=== PATIENT | female | born 1990 | race African-American/Black ===

== ENCOUNTER 2018-10-21 05:40 | Inpatient (IN) | payer MEDICARE, MEDICAID ==
--- NOTE | 2018-10-19 17:36 | HP ---
General Information - Reason for Visit 28 y/o with Sickle cell trait and a at 39+ weeks EGA, history of prior Section, desires a repeat delivery despite counseling and prior successful . 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 - Antepartal Records Antepartal Records: Reviewed, Complicated by: - Prior , Sickle cell trait, Anemia, Obesity. Review of Systems Constitutional: Comfortable CV Complaint: No Respiratory: Shortness of Breath: No Gastrointestinal: No Nausea/Vomiting, Normal Bowel Movement Genitourinary: No Dysuria, No Bleeding, No Leaking Fluid Musculoskeletal: No Complaint, No Epigastric Pain Neurological: No Headache, No Visual Changes Movement: Normal Exam Allergies/Adverse Reactions: Allergies No Known Allergies Allergy (Verified 10/19/18 15:19) Temp 98.8 BP 130/80 P 84 RR 20 - Measurements Height: 5 ft 6 in Weight: 200 lb Weight in lbs: 200.551382 Body Mass Index (BMI): 32.3 Pre- Weight: 218 lb 9.723 oz Weight Gained This : -18.607 lbs and -0.011 ozs - Exam Breast: Breast Exam Deferred CVA: No CVA Tenderness Extremities: No Edema Heart: Normal Rhythm/Heart Sounds HEENT: No Significant Findings Lungs: Clear Bilaterally Rectal: Rectal Exam Deferred Reflexes: DTR 2+ Thyroid: No Thyromegaly - Abdominal Exam Abdomen Exam: Non-Tender, Fundal Height Consistent with Dates - Ultrasound/Biophysical Profile Ultrasound Status: Not Done Targeted Exam Findings See L&D Outpatient Visit Provider Note for Findings: N/A Cervical Exam: 2cm Effacement: 60% Station: -2 Presenting Part: Vertex Membrane Status: Intact Bleeding/Discharge: None EFM Findings - External Monitor Findings Baseline Heart Rate: 150 Contractions: None Assessment/Plan - Assessment Patient is a 28 y/o at 39 6/7 weeks EGA, prior section, prior who desires a repeat section. The patient has been counseled regarding an attempt at given that she has done so in the past and is a good candidate for a trial of labor. She is aware of the risk/benefits, common side effects/complications, morbidity/mortality associated with a repeat section and . After our discussion and answering all of her questions to her satisfaction, she expressed understanding of her choices and opted for a repeat section. - Obstetrical Risk Factors Obstetrical Risk Factors: Obesity - Previous , Anemia. - Plan Plan: IV Hydration, Expedite C/S Delivery, Antibiotic Prophylaxis - Date/Time of Admission Date of Admission: 10/21/18 Time of Admission: 07:00
[2018-10-21] MEDS ORDERED: Lidocaine 1%* 5 ML VIAL ONE (05:51)
[2018-10-21] MEDS ORDERED: Sodium Citrate/Citric Acid* 15 ML UDC PO ONE (07:00)
[2018-10-21] MEDS ORDERED: ceFOXitin 2 GM IVPREMIX* 2 GM/50 ML BAG IVPB ONE (07:00)
[2018-10-21] MEDS ORDERED: Bupivacaine-MPF SPINAL* 7.5 MG/ML - 2ML AMP ONE (07:38)
[2018-10-21] MEDS ORDERED: Lidocaine 2% PF * 5 ML VIAL ONE (07:38)
[2018-10-21] MEDS ORDERED: Morphine PF AMP (0.5MG/ML)* 5 MG/10 ML AMP ONE (07:38)
[2018-10-21] MEDS ORDERED: Sodium Chloride 0.9%* 10 ML ONE (07:54)
[2018-10-21] MEDS ORDERED: EPHEDrine (Pressors)* 50 MG/ML VIAL ONE (08:23)
[2018-10-21] MEDS ORDERED: Phenylephrine INJ* 10 MG/ML 1 ML VIAL (10 MG) ONE (08:23)
[2018-10-21] MEDS ORDERED: OXYTOCIN* 10 UNITS/ML 1 ML VIAL ONE ×2 (08:32→09:00)
[2018-10-21] MEDS ORDERED: Naloxone* 0.4 MG/ML 1 ML VIAL IV PRN ×2 (08:43→08:53)
[2018-10-21] MEDS ORDERED: fentaNYL* 50 MCG/ML 2 ML VIAL (100 MCG VIAL) IV PRN (08:48)
[2018-10-21] MEDS ORDERED: Ondansetron INJ* 2 MG/ML VIAL IV PRN ×2 (08:48→08:53)
[2018-10-21] MEDS ORDERED: oxyCODONE/Acetamin 5/325 MG* TAB PO PRN (08:53)
[2018-10-21] MEDS ORDERED: DiMENhydriNATE IV* 50 MG/ML VIAL IV PUSH PRN (08:53)
[2018-10-21] MEDS ORDERED: Scopolamine 1.5 mg* PATCH TRANSDERM PRN (08:53)
[2018-10-21] MEDS ORDERED: Ketorolac INJ* 30 MG/ML 1 ML VIAL ONE (08:56)
[2018-10-21] MEDS ORDERED: Methylergonovine INJ* 0.2 MG/ML 1ML AMP IM ONE (09:22)
[2018-10-21] MEDS ORDERED: Glycerin ADULT SUPP PR PRN (09:22)
[2018-10-21] MEDS ORDERED: Dibucaine 1% 28.35 GM TUBE PR PRN (09:22)
[2018-10-21] MEDS ORDERED: Zolpidem TAB* 5 MG PO PRN (09:22)
[2018-10-21] MEDS ORDERED: Witch Hazel PAD* JAR TOPICAL PRN (09:22)
[2018-10-21] MEDS ORDERED: Acetaminophen TAB* 325 MG PO PRN (09:22)
[2018-10-21] MEDS: Simethicone TAB* 80 MG TAB.CHEW PO SCH ×3 (15:38→21:58)
[2018-10-21] MEDS: Docusate CAP* 100 MG PO SCH ×2 (15:39→21:58)
[2018-10-21] MEDS ORDERED: PROCHLORPERAZINE INJ 5 MG/ML 2 ML VIAL IV ONE (16:00)
[2018-10-21] MEDS: Ketorolac INJ* 30 MG/ML 1 ML VIAL IV PRN ×2 (16:01→22:02)
[2018-10-22] MEDS ORDERED: oxyCODONE/Acetamin 5/325 MG* TAB PO PRN (00:06)
[2018-10-22] MEDS: Ketorolac INJ* 30 MG/ML 1 ML VIAL IV PRN (04:06)
[2018-10-22 07:32] LABS: ABS Basophils 0.1 10^3/ul (0-0.2); ABS Eosinophils 0 10^3/ul (0-0.6); ABS Lymphocytes 1.3 10^3/ul (1.0-4.8); ABS Monocytes 0.5 10^3/ul (0-0.8); ABS Neutrophils 8.9 10^3/ul (1.5-7.7); ABS Nucleated RBC 0 10^3/ul; Eosinophil % 0.2 %; Hematocrit 23 % (35-47); Hemoglobin 7.2 g/dl (12.0-16.0); Lymphocyte % 12.2 %; Mean Corpuscular HGB Conc 32 g/dl (31-36); Mean Corpuscular Hemoglobin 20 pg (27-31); Mean Corpuscular Volume 64 fL (80-97); Mean Platelet Volume 6.9 fL (7.4-10.4); Nucleated Red Blood Cells % 0.1; Platelet Count 269 10^3/ul (150-450); Red Blood Count 3.52 10^6/ul (4.00-5.40); Red Cell Distribution Width 19 % (10.5-15); White Blood Count 10.8 10^3/ul (3.5-10.8)
[2018-10-22] MEDS: Simethicone TAB* 80 MG TAB.CHEW PO SCH ×4 (09:29→20:19)
[2018-10-22] MEDS: Docusate CAP* 100 MG PO SCH ×3 (09:29→20:19)
[2018-10-22] MEDS: Ferrous Gluconate TAB* 324 MG TAB PO SCH ×2 (09:29→20:19)
[2018-10-22] MEDS: oxyCODONE/Acetamin 5/325 MG* TAB PO PRN ×3 (09:47→20:19)
[2018-10-22] MEDS: Ibuprofen TAB* 600 MG PO PRN ×3 (10:17→22:27)
[2018-10-23] MEDS: oxyCODONE/Acetamin 5/325 MG* TAB PO PRN ×3 (01:09→20:16)
[2018-10-23] MEDS: Ibuprofen TAB* 600 MG PO PRN ×3 (05:57→20:15)
--- NOTE | 2018-10-23 09:39 | OP ---
DATE OF OPERATION: 10/21/18 - ROOM #117 DATE OF : 88 SURGEON: Silvino James MD. [employer] COACH: Dr. Mendoza. ANESTHESIA: Spinal. PRE-OP DIAGNOSIS: at 39 weeks, prior section. POST-OP DIAGNOSIS: at 39 weeks, prior section. OPERATIVE PROCEDURE: Repeat low transverse section. ESTIMATED BLOOD LOSS: 500 cc. SPECIMENS SENT TO PATHOLOGY: Cord blood. FLUIDS: She received 2400 cc of IV crystalloid fluid. URINE OUTPUT: Clear at 300 cc. FINDINGS: Delivery of a viable female with clear fluid with weight of 6 pounds 5 pounds, Apgars of 9 and 9. The uterus, adnexa, bowel, and bladder were all within normal limits and there were no complications. DESCRIPTION OF PROCEDURE: The patient was taken to the operating room where she was identified. She was placed on the operating room table where a spinal anesthetic was obtained without difficulty. She was then placed in the supine position with a leftward tilt, prepped and draped in a normal sterile fashion. A Pfannenstiel skin incision was made with a knife and carried through to the underlying layer of fascia. The fascia was nicked in the midline and extended laterally with curved Lowery scissors. The fascia was then grasped superiorly and inferiorly with Marly clamps and dissected off sharply from the rectus muscle. The rectus muscle was in the midline bluntly and sharply. The peritoneum was identified, grasped with pickups, and entered sharply with Metzenbaum scissors, and extended superiorly and inferiorly bluntly. A bladder blade was inserted into the patient's abdomen. A bladder flap was created using Metzenbaum scissors over which the bladder blade was then reinserted. A low transverse uterine incision was made with a knife, extended laterally with bandage scissors. The infant's head was then grasped and delivered atraumatically. The mouth and nose were suctioned. The rest of the infant's body was then delivered. The cord was clamped and cut, and the infant was handed off to awaiting it help desk analyst. Cord bloods were obtained. The placenta was removed manually. The uterus was then exteriorized, cleared off all clot and debris using moist laparotomy sponges. The uterine incision was then closed using 0 Polysorb suture in a running locked fashion with the second imbricating layer of 0 Polysorb suture with good hemostasis noted. The patient' s abdomen was then irrigated with normal saline. Irrigation fluid was suctioned. The uterus was then returned to the patient's abdomen. The gutters were then cleared of all clot and debris using moist laparotomy sponges. All the sponges and instruments were removed from the patient's abdomen. The peritoneum was then closed using 3-0 Polysorb suture in a running fashion. A sheath of Interceed was placed between the fascia and the rectus muscle. The fascia was then closed using 0 Polysorb suture in a running fashion. The subcutaneous Ginny's layer was closed using 3-0 Polysorb suture with interrupted sutures and the skin was closed with 4-0 Monocryl subcuticular stitch. The patient tolerated the procedure well. Sponge, lap, and needle counts were correct x2. She was then transferred to the recovery room are a in stable condition. [id number]/CPS #: [id number] MTDD
[2018-10-23] MEDS: Ferrous Gluconate TAB* 324 MG TAB PO SCH ×2 (09:46→20:15)
[2018-10-23] MEDS: Simethicone TAB* 80 MG TAB.CHEW PO SCH ×3 (09:46→20:16)
[2018-10-23] MEDS: Docusate CAP* 100 MG PO SCH ×3 (09:46→20:16)
[2018-10-23 10:13] LABS: ABS Basophils 0 10^3/ul (0-0.2); ABS Eosinophils 0.2 10^3/ul (0-0.6); ABS Monocytes 0.8 10^3/ul (0-0.8); ABS Neutrophils 8.1 10^3/ul (1.5-7.7); ABS Nucleated RBC 0 10^3/ul; Eosinophil % 1.4 %; Hematocrit 24 % (35-47); Hemoglobin 7.5 g/dl (12.0-16.0); Lymphocyte % 18.2 %; Mean Corpuscular HGB Conc 32 g/dl (31-36); Mean Corpuscular Hemoglobin 20 pg (27-31); Mean Corpuscular Volume 64 fL (80-97); Mean Platelet Volume 7.1 fL (7.4-10.4); Nucleated Red Blood Cells % 0.2; Platelet Count 317 10^3/ul (150-450); Red Blood Count 3.66 10^6/ul (4.00-5.40); Red Cell Distribution Width 19 % (10.5-15); White Blood Count 11.1 10^3/ul (3.5-10.8)
[2018-10-24] MEDS: Ibuprofen TAB* 600 MG PO PRN ×2 (02:15→08:37)
[2018-10-24] MEDS: oxyCODONE/Acetamin 5/325 MG* TAB PO PRN ×2 (02:16→08:37)
[2018-10-24 08:19] VITALS: BP 130/68
[2018-10-24] MEDS: Simethicone TAB* 80 MG TAB.CHEW PO SCH ×2 (08:37→08:38)
[2018-10-24] MEDS: Ferrous Gluconate TAB* 324 MG TAB PO SCH (08:37)
[2018-10-24] MEDS: Docusate CAP* 100 MG PO SCH (08:37)
[2018-10-24] MEDS ORDERED: Scopolamine PATCH Remove* 1 NOTE MISC PATCH OFF PRN (08:55)
== END 2018-10-24 11:03 | disposition home or self-care (01) | DRG 788 ==
LOC: MCHOB 05:40
PROVIDERS: ADMIT Obstetrics & Gynecology; ATTEND Obstetrics & Gynecology
PROC: 4A1HXCZ Monitoring of Products of Conception, Cardiac Rate, External Approach (ICD-10-PCS; 2018-10-21)
PROC: 10D00Z1 Extraction of Products of Conception, Low, Open Approach (ICD-10-PCS; principal; 2018-10-21 07:45)
DX: O34.211 Maternal care for low transverse scar from previous cesarean delivery (principal); D57.3 Sickle-cell trait; Z3A.39 39 weeks gestation of pregnancy; Z37.0 Single live birth; O99.214 Obesity complicating childbirth; O99.02 Anemia complicating childbirth; Z86.73 Personal history of transient ischemic attack (TIA), and cerebral infarction without residual deficits; M41.9 Scoliosis, unspecified; O75.89 Other specified complications of labor and delivery; O90.81 Anemia of the puerperium
CPT/HCPCS: 36415; 51600; 74430; 85025; A9270-GY; J0694; J0780; J1240; J1885; J2210; J2590